=== PATIENT | female | born 1975 | race Caucasian/White ===

== ENCOUNTER 2017-12-10 10:13 | Emergency (ER) | payer SELFPAY ==
[2017-12-10] MEDS ORDERED: Fluorescein Opthalmic Strip ONE (12:13)
[2017-12-10] MEDS ORDERED: Proparacaine 0.5% Opth 15 ML BOT ONE (12:13)
== END 2017-12-10 12:54 | disposition home or self-care (01) ==
LOC: ERS 10:13
DX: S05.01XA Injury of conjunctiva and corneal abrasion without foreign body, right eye, initial encounter (principal); X58.XXXA Exposure to other specified factors, initial encounter
CPT/HCPCS: 99282

== ENCOUNTER 2018-02-27 09:39 | Emergency (ER) | payer SELFPAY ==
[2018-02-27] MEDS ORDERED: Dexamethasone 4 MG TAB ONE (11:24)
[2018-02-27] MEDS ORDERED: Morphine 4 MG/ML VIAL ONE (11:24)
== END 2018-02-27 12:01 | disposition home or self-care (01) ==
LOC: ERS 09:39
DX: M54.5 Low back pain (principal)
CPT/HCPCS: 96374; J2270; J8540

== ENCOUNTER 2018-06-17 16:16 | Emergency (ER) | payer SELFPAY ==
--- NOTE | 2018-06-17 18:30 | RAD ---
RIGHT KNEE 4 VIEWS: Date: 06/17/18 HISTORY: Injury after stepping off a curb and hearing a pop. FINDINGS: No evidence for acute fracture or dislocation. There may be a small amount of fluid in the suprapatel lar recess. IMPRESSION: No acute fracture or dislocation. POS: [facility]
== END 2018-06-17 17:00 | disposition home or self-care (01) ==
LOC: ERS 16:16
DX: S83.91XA Sprain of unspecified site of right knee, initial encounter (principal); X58.XXXA Exposure to other specified factors, initial encounter